=== PATIENT | male | born 1990 | race Two or more races ===

== ENCOUNTER 2024-06-16 16:40 | Inpatient (IN) | payer OTHER ==
[~2024-06-16] VITALS: Ht 182.9 cm; Wt 150.6 kg
[2024-06-16] MEDS ORDERED: ACETAMINOPHEN 500 MG GEL..CAP PO ONE (17:56)
[2024-06-16] MEDS ORDERED: KETOROLAC TROMETHAMINE 30 MG VIAL ONE (21:42)
[2024-06-16] MEDS ORDERED: CEFTRIAXONE SODIUM 500 MG VIAL ONE (21:43)
[2024-06-17] MEDS ORDERED: CEFTRIAXONE SODIUM 500 MG VIAL ONE (02:14)
[2024-06-17] MEDS ORDERED: CEFTRIAXONE SODIUM 1,000 MG VIAL ONE (07:14)
[2024-06-17] MEDS ORDERED: CEFTRIAXONE SODIUM 2,000 MG VIAL IV SCH (19:30)
[2024-06-17] MEDS ORDERED: ENOXAPARIN SODIUM 40 MG/0.4 ML SYRINGE SUBCUTANEO SCH (19:30)
[2024-06-17] MEDS ORDERED: 0.9 % SODIUM CHLORIDE 1,000 ML IV PUSH SCH (19:30)
[2024-06-17] MEDS ORDERED: VANCOMYCIN HCL 1,000 MG VIAL IV SCH (19:30)
[2024-06-17] MEDS ORDERED: FAMOTIDINE/PF 20 MG/2 ML VIAL IV SCH (19:30)
[2024-06-17] MEDS ORDERED: LOSARTAN POTASSIUM 50 MG TABLET PO SCH (19:30)
[2024-06-17] MEDS ORDERED: VANCOMYCIN HCL 1,000 MG VIAL ONE (21:17)
[2024-06-17] MEDS ORDERED: CEFTRIAXONE SODIUM 2,000 MG VIAL ONE (21:17)
[2024-06-17] MEDS ORDERED: ENOXAPARIN SODIUM 40 MG/0.4 ML SYRINGE SUBCUTANEO ONE (21:17)
[2024-06-17] MEDS ORDERED: FAMOTIDINE/PF 20 MG/2 ML VIAL ONE (21:17)
[2024-06-18] MEDS ORDERED: DEXTROSE 50 % IN WATER 0.5 G/ML VIAL IV PRN (08:15)
[2024-06-18] MEDS ORDERED: INSULIN LISPRO 1,000 UNIT/10 ML UNITS SUBCUTANEO PRN (08:15)
[2024-06-18] MEDS ORDERED: VANCOMYCIN HCL 1,000 MG VIAL ONE (08:33)
[2024-06-18] MEDS ORDERED: ENOXAPARIN SODIUM 40 MG/0.4 ML SYRINGE SUBCUTANEO ONE (08:33)
[2024-06-18] MEDS ORDERED: CEFTRIAXONE SODIUM 2,000 MG VIAL ONE (08:33)
[2024-06-18] MEDS ORDERED: FAMOTIDINE/PF 20 MG/2 ML VIAL ONE (08:33)
[2024-06-18 08:34] VITALS: BP 121/81
[2024-06-18 08:53] VITALS: BP 121/81; O2SAT 95
[2024-06-18 17:59] VITALS: BP 147/91; O2SAT 94
[2024-06-19 00:14] VITALS: BP 142/86; O2SAT 97
[2024-06-19 08:39] LABS: HEMATOCRIT 34.8 % (39.0-48.0); HEMOGLOBIN 11.9 g/dL (13-16.00); MEAN CELL VOLUME 88.9 fL (80.0-100.00); MEAN CORPUSCULAR HEMOGLOBIN 30.4 pg (27.00-32.0); MEAN CORPUSCULAR HGB CONC 34.3 g/dl (32.0-36.0); PLATELET COUNT 171 K/uL (150-450); RED BLOOD COUNT 3.92 M/uL (4.00-6.00); RED CELL DISTRIBUTION WIDTH 13.2 % (11.5-14.5)
[2024-06-19] MEDS ORDERED: LINEZOLID 600 MG TABLET PO SCH (09:00)
[2024-06-19 09:36] LABS: ALBUMIN 2.8 gm/dL (3.4-5.0); BILIRUBIN TOTAL 0.42 mg/dL (0.3-1.2); CREATININE SERUM 0.92 mg/dL (0.70-1.30); GFR 93.09; GLOBULINA 3.1 G/DL (2.4-3.5); POTASSIUM 3.97 mEq/L (3.5-5.1); TOTAL PROTEIN 5.9 gm/dL (6.4-8.2)
[2024-06-19 09:56] VITALS: BP 105/62; O2SAT 98
[2024-06-19 18:21] VITALS: BP 142/97
[2024-06-19] MEDS ORDERED: FAMOtidine 20 MG TABLET PO SCH (21:00)
[2024-06-20 00:56] VITALS: BP 135/85
[2024-06-20 09:47] VITALS: BP 120/72; O2SAT 99
[2024-06-20 17:46] VITALS: BP 135/88; O2SAT 98
[2024-06-21 01:04] VITALS: BP 124/68
[2024-06-21 09:13] VITALS: BP 118/64; O2SAT 98
[2024-06-21] MEDS ORDERED: COZAAR50 MG PO (11:17)
[2024-06-21] MEDS ORDERED: AMOX-CLAV 875-1 EACH PO (11:18)
== END 2024-06-21 12:07 | disposition home or self-care (01) | DRG 638 ==
LOC: ER 16:50 → MEDJ 06-17 19:30
PROVIDERS: Student in an Organized Health Care Education/Training Program; ADMIT Student in an Organized Health Care Education/Training Program; ATTEND Student in an Organized Health Care Education/Training Program
PROC: B54DZZZ Ultrasonography of Bilateral Lower Extremity Veins (ICD-10-PCS; principal; 2024-06-19)
DX: E11.628 Type 2 diabetes mellitus with other skin complications (principal); L03.116 Cellulitis of left lower limb; E11.51 Type 2 diabetes mellitus with diabetic peripheral angiopathy without gangrene; G47.33 Obstructive sleep apnea (adult) (pediatric); I10 Essential (primary) hypertension